=== PATIENT | female | born 1950 | race Caucasian/White ===

== ENCOUNTER → 2017-02-12 | Outpatient (CLI) | payer MEDICAID ==
[~2017-02-12] MED LIST: ADVAIR 100/28 DISKU1 IH; ASPIRIN E.C. 8181 MG PO; ATORVASTATIN PO; CALCIUM + D 6001 TA1 PO; CETIRIZINE10 MG PO; CYMBALTA60 MG PO; MECLIZINE25 MG PO; MOBIC 7.5MG7.5 MG PO; MULTIPLE VITAMI1 TAB PO; OMEGA 31000 MG PO; PREVACID 30MG30 M1 PO; PROVENTIL0.09 MG/A1 IH; VITAMIN E1000 U/CAP PO; WELCHOL625 MG PO; ZOLOFT100 MG PO
[2017-02-12 12:08] LABS: HEMATOCRIT 43.1 % (37.0-47.0); HEMOGLOBIN 13.9 g/dl (12.5-16.0); MEAN CELL VOLUME 84 fl (80.0-100.0); MEAN CORPUSCULAR HEMOGLOBIN 27 pg (27.0-31.0); MEAN CORPUSCULAR HGB CONC 32 g/dl (33.0-37.0); MEAN PLATELET VOLUME 9.9 fl (7.4-10.4); PLATELET COUNT 237 K/mm3 (130-400); RED BLOOD COUNT 5.12 M/mm3 (4.10-5.30); WHITE BLOOD COUNT 5.8 K/mm3 (4.8-10.8)
[2017-02-12 12:35] LABS: ERYTHROCYTE SEDIMENTATION RATE 13 mm/hr (0-30)
== END ==
LOC: COL.LAB 11:27
PROVIDERS: Orthopaedic Surgery
DX: M25.519 Pain in unspecified shoulder (principal)

== ENCOUNTER → 2017-02-15 | Outpatient (CLI) | payer MEDICAID | LOC: COL.RAD 13:30 | DX: Z01.89 Encounter for other specified special examinations (principal) ==

== ENCOUNTER → 2017-02-16 | Outpatient (CLI) | payer MEDICAID | LOC: COL.RAD 12:30 | DX: M25.511 Pain in right shoulder (principal) | CPT/HCPCS: Q9967 ==

== ENCOUNTER → 2018-05-02 | Outpatient (CLI) | payer MEDICAID | LOC: COL.PUL 13:00 | DX: R06.02 Shortness of breath (principal) | CPT/HCPCS: J7674 ==

== ENCOUNTER → 2018-06-03 | Outpatient (CLI) | payer MEDICAID | LOC: COL.RAD 11:24 | DX: M43.16 Spondylolisthesis, lumbar region (principal); M48.07 Spinal stenosis, lumbosacral region; M46.94 Unspecified inflammatory spondylopathy, thoracic region ==

== ENCOUNTER → 2018-06-03 | Outpatient (CLI) | payer MEDICAID | LOC: MHCPAIN 10:24 | DX: G89.29 Other chronic pain (principal); M47.817 Spondylosis without myelopathy or radiculopathy, lumbosacral region; M54.16 Radiculopathy, lumbar region; M53.3 Sacrococcygeal disorders, not elsewhere classified | CPT/HCPCS: G0463 ==

== ENCOUNTER → 2018-09-02 | Outpatient (CLI) | payer MEDICAID ==
[~2018-09-02] MED LIST changes: +ULTRAM 50MG TAB50 MG PO
== END ==
LOC: MHCPAIN 09:57
DX: G89.29 Other chronic pain (principal); M47.817 Spondylosis without myelopathy or radiculopathy, lumbosacral region; M54.16 Radiculopathy, lumbar region; M53.3 Sacrococcygeal disorders, not elsewhere classified
CPT/HCPCS: G0463

== ENCOUNTER → 2018-11-04 | Outpatient (CLI) | payer MEDICAID | LOC: MHCPAIN 08:51 | DX: G89.29 Other chronic pain (principal); M47.817 Spondylosis without myelopathy or radiculopathy, lumbosacral region; M53.3 Sacrococcygeal disorders, not elsewhere classified | CPT/HCPCS: G0463 ==

== ENCOUNTER → 2018-11-11 | Outpatient (CLI) | payer MEDICAID | LOC: MHCPAIN 13:27 | DX: M47.817 Spondylosis without myelopathy or radiculopathy, lumbosacral region (principal); M54.16 Radiculopathy, lumbar region | CPT/HCPCS: J1040; Q9967 ==

== ENCOUNTER → 2018-11-14 | Outpatient (CLI) | payer MEDICAID | LOC: COL.RAD 13:24 | DX: M19.012 Primary osteoarthritis, left shoulder (principal) ==

== ENCOUNTER → 2018-12-11 | Outpatient (CLI) | payer MEDICAID | LOC: MHCPAIN 09:55 | DX: G89.29 Other chronic pain (principal); M47.817 Spondylosis without myelopathy or radiculopathy, lumbosacral region; M54.16 Radiculopathy, lumbar region; M53.3 Sacrococcygeal disorders, not elsewhere classified | CPT/HCPCS: G0463 ==

== ENCOUNTER → 2019-03-26 | Outpatient (CLI) | payer MEDICAID | LOC: MHCPAIN 11:02 | DX: M47.817 Spondylosis without myelopathy or radiculopathy, lumbosacral region (principal); M53.3 Sacrococcygeal disorders, not elsewhere classified | CPT/HCPCS: G0463 ==

== ENCOUNTER → 2019-06-11 08:10 | Outpatient (RCR) | payer MEDICAID | END | disposition home or self-care (01) | LOC: WSPT 04-15 11:00 | DX: G89.29 Other chronic pain (principal); M54.5 Low back pain ==

== ENCOUNTER → 2020-12-08 | Outpatient (CLI) | payer MEDICAID | LOC: MHCPAIN 14:06 | DX: M47.812 Spondylosis without myelopathy or radiculopathy, cervical region (principal); M54.12 Radiculopathy, cervical region; G89.29 Other chronic pain | CPT/HCPCS: G0463 ==

== ENCOUNTER → 2020-12-30 | Outpatient (CLI) | payer MEDICAID | LOC: MHCPAIN 12:56 | DX: M47.812 Spondylosis without myelopathy or radiculopathy, cervical region (principal); M54.12 Radiculopathy, cervical region | CPT/HCPCS: J1100; Q9967 ==

== ENCOUNTER → 2021-01-11 | Outpatient (CLI) | payer MEDICAID | LOC: MHCPAIN 10:09 | DX: M47.812 Spondylosis without myelopathy or radiculopathy, cervical region (principal); M54.12 Radiculopathy, cervical region; M54.50 Low back pain, unspecified; M53.3 Sacrococcygeal disorders, not elsewhere classified | CPT/HCPCS: G0463 ==

== ENCOUNTER → 2021-05-24 | Outpatient (CLI) | payer MEDICAID | LOC: MHCPAIN 10:10 | DX: M54.50 Low back pain, unspecified (principal); M54.2 Cervicalgia; M25.511 Pain in right shoulder; G89.29 Other chronic pain | CPT/HCPCS: G0463 ==

== ENCOUNTER → 2021-09-09 | Outpatient (CLI) | payer MEDICAID | LOC: COL.CARD 08:30 | DX: R06.02 Shortness of breath (principal); R07.89 Other chest pain; R00.2 Palpitations ==

== ENCOUNTER 2023-08-07 05:42 | Day surgery (SDC) | payer MEDICAID ==
[~2023-08-07] VITALS: Ht 152.4 cm; Wt 70.1 kg
[2023-08-07] VITALS (9 sets, daily range): BP systolic 108–151; BP diastolic 60–70; PULSE 54–65; TEMP 97.5–97.7
[~2023-08-07 05:42] MED LIST changes: -ADVAIR 100/28 DISKU1 IH; -ATORVASTATIN PO; +LIPITOR 80MG80 MG PO; +RT ADVAIR 228 DISKUS IH
[2023-08-07] MEDS ORDERED: fentaNYL 50 MCG/ML 2 ML VIAL ONE (06:30)
[2023-08-07] MEDS ORDERED: NS 10 ML IV ONE (06:31)
[2023-08-07] MEDS ORDERED: Midazolam 2 MG/2 ML VIAL ONE (06:31)
[2023-08-07] MEDS ORDERED: Ondansetron 4 MG/2 ML VIAL ONE (06:31)
[2023-08-07] MEDS ORDERED: dexAMETHasone 10 MG/ML VIAL ONE (06:31)
[2023-08-07] MEDS ORDERED: Lidocaine PF 2% (20 MG/ML) 5 ML VIAL ONE (06:35)
[2023-08-07] MEDS ORDERED: [UNRECOGNIZED DRUG - OTHER] IJ ONE (06:38)
[2023-08-07] MEDS ORDERED: BUPIVACAINE IJ ONE (06:38)
--- NOTE | 2023-08-07 06:55 | NUR ---
[facility] DOWNTIME DURING TIMES OF MEDICATION ADMINISTRATION. SEE PAPER CHART FOR MEDICATION ADMINISTRATION RECORD. 0650: LACTATED RINGERS CONNECTED TO IV AND INFUSING AT 125ML/HR PER ANESTHESIA ORDER. 0653: FAMOTIDINE 20MG IV ADMINISTERED PER ANESTHESIA ORDER. 0654: PREGABALIN 150MG PO ADMINISTERED PER ORDER. 0656: INFORMED OF PATIENT ALLERGY TO CELEBREX. OK WITH TO NOT GIVE ORDERED CELEBREX. 0707: INFORMED OF PATIENTS LAST DOSES OF ELIQUIS (07/25/23) AND CLOPIDOGREL (07/29/23). OK TO PROCEED WITH SURGICAL CASE TODAY PER .
[2023-08-07] MEDS ORDERED: ePHEDrine 50 MG/ML VIAL ONE (07:34)
[2023-08-07] MEDS ORDERED: HYDROmorphone 1 MG/1 ML SYRINGE [PACU/SDC ONLY] IV PRN ×2 (07:45)
[2023-08-07] MEDS ORDERED: hydrALAZINE 20 MG/ML 1 ML VIAL IV PRN (07:45)
[2023-08-07] MEDS ORDERED: Ondansetron 4 MG/2 ML VIAL IV PRN (07:45)
[2023-08-07] MEDS ORDERED: fentaNYL 50 MCG/ML 1 ML SYRINGE/VIAL [PACU/SDC ONLY] IV PRN (07:45)
[2023-08-07] MEDS ORDERED: Meperidine 50 MG/ML 1 ML VIAL IV PRN (07:45)
[2023-08-07] MEDS ORDERED: droPERidol 2.5 MG/ML 2 ML VIAL IV PRN (07:45)
[2023-08-07] MEDS ORDERED: ELIQUIS 5MG PO (07:57)
[2023-08-07] MEDS ORDERED: PLAVIX 75MG TAB75 MG PO (07:59)
[2023-08-07] MEDS ORDERED: TOPROL XL 25MG25 MG PO (08:00)
[2023-08-07] MEDS ORDERED: PROTONIX 40MG T40 MG PO (08:01)
[2023-08-07] MEDS ORDERED: FLEXERIL5 MG PO (08:01)
[2023-08-07] MEDS ORDERED: RT SPIRIVA18 MCG IH (08:03)
[2023-08-07] MEDS ORDERED: VITAMIN C500 MG PO (08:05)
[2023-08-07] MEDS ORDERED: FOLIC ACID 40400 MCG PO (08:09)
[2023-08-07] MEDS ORDERED: FEROSUL PO (08:10)
[2023-08-07] MEDS ORDERED: Topical Skin Adhesive 1 EACH (1 ML) TOP ONE (08:38)
[2023-08-07] MEDS ORDERED: Promethazine 25 MG TAB PO PRN (08:45)
[2023-08-07] MEDS ORDERED: Morphine 4 MG/ML VIAL IV PRN (08:45)
[2023-08-07] MEDS ORDERED: ROXICODONE 55 MG/TAB PO (08:49)
[2023-08-07] MEDS ORDERED: TYLENOL 500MG500 MG PO (08:49)
[2023-08-07] MEDS ORDERED: oxyCODONE 5 MG TAB PO PRN (09:00)
[2023-08-07] MEDS ORDERED: Acetaminophen 500 MG TAB PO SCH (09:00)
--- NOTE | 2023-08-07 10:23 | NUR ---
PATIENT BROUGHT TO FLOOR AT APPROXIMATELY 0930. POST OP VITALS RUNNING. PATIENT DENIES ANY PAIN. DRESSING TO LEFT SHOULDER AQUACELL, CDI WITH SLING AND ICE PACK APPLIED. PATIENT ALERT BUT DROWSY. PATIENT REFUSES ICE WATER OR ICE CHIPS. PATIENT IN BED, CALL LIGHT IN REACH.
--- NOTE | 2023-08-07 13:12 | NUR ---
Initial visit; Patient and daughter thanked Tipple Supervisor for coming in to visit and empathize with Rita. Tipple Supervisor was able to communicate with Rita through actions and Rita' daughter acting as enterpreter. Tipple Supervisor offered prayer for rapid and thorough healing of Rita' shoulder and God's blessings.
--- NOTE | 2023-08-07 13:25 | NUR ---
DISCHARGE INSTRUCTIONS PROVIDED. PATIENT EDUCATION GIVEN. IV DC'D. MEDICATIONS REVIEWED. FOLLOW UP APPOINTMENT DISCUSSED. PATIENT AND FAMILY DENY ANY QUESTIONS OR CONCERNS. PATIENT ESCORTED OUT VIA WHEELCHAIR.
== END 2023-08-07 13:26 | disposition home or self-care (01) ==
LOC: SDCO 05:42 → SURG 09:30 → SDCO 12:00 → SURG 13:26
DX: M75.102 Unspecified rotator cuff tear or rupture of left shoulder, not specified as traumatic (principal); M12.812 Other specific arthropathies, not elsewhere classified, left shoulder; Z86.718 Personal history of other venous thrombosis and embolism; Z86.711 Personal history of pulmonary embolism; Z79.01 Long term (current) use of anticoagulants
CPT/HCPCS: OP; A4619; A6197; C1713; C1776; C9290; J0665; J0690; J1100; J2250; J2405; J2704; J3010